=== PATIENT | male | born 1990 | race Caucasian/White ===

== ENCOUNTER 2024-01-28 19:39 | Emergency (ER) | payer BC, SELFPAY ==
--- NOTE | ~2024-01-28 | CT_ITS ---
EXAMINATION: CT abdomen pelvis w con DATE: 01/28/2024 22:45 INDICATION: abd pain, nausea, diarrhea TECHNIQUE: Computed tomography (CT) of the abdomen and pelvis was performed with 100 mL Omnipaque-350 intravenous contrast. Automated exposure control and iterative reconstruction technique were employe d. The dose-length product was 584.13 mGy-cm. COMPARISON: None. FINDINGS: Lower thorax: Mild dependent atelectasis. Liver: Normal. Biliary/Gallbladder: Gallbladder is contracted. No bile duct dilation. Pancreas: No mass or duct dilation. Spleen: Normal. Adrenals:No mass. Kidneys: No suspicious mass, obstructing stone, or hydronephrosis. GI tract: Mild distal esophageal and antral wall edema. No small or large bowel dilation. Normal appe ndix. Mesentery/Peritoneum: No ascites, mass, or free air. Retroperitoneum: No mass. Pelvis: Pelvic organs are within normal limits. Soft Tissues: Soft tissues and body wall unremarkable. Bones: No acute osseous finding. IMPRESSION: Mild esophagitis and antral gastritis. Otherwise, no acute abdominopelvic process detected. Reviewed, dictated and finalized at location K.
[2024-01-28 19:41] VITALS: BP 141/78; PULSE 96; RESP 20; TEMP 36.6; O2SAT 100
[2024-01-28 21:58] LABS: Basophils Absolute Auto 0.1 K/mm3 (0.0-0.1); Basophils Percent Auto 0.7 % (0.2-1.2); Eosinophils Absolute Auto 0.7 K/mm3 (0-0.3); Hematocrit 45.2 % (42.0-52.0); Hemoglobin 16.1 g/dL (14.0-18.0); Immature Granulocyte Absolute 0.02 K/mm3 (0.00-0.031); Immature Granulocyte Percent A 0.2 % (0-0.5); Lymphocytes Absolute Auto 2.35 K/mm3 (0.9-3.2); Lymphocytes Percent Auto 28.1 % (18.3-44.2); Mean Corpuscular HGB Conc 35.6 g/dl (32-36); Mean Corpuscular Hemoglobin 33.1 pg (26-34); Mean Corpuscular Volume 92.8 fl (80-100); Mean Platelet Volume 8.9 fl (7.4-10.4); Monocytes Absolute Auto 0.8 K/mm3 (0.1-0.6); Monocytes Percent Auto 9.6 % (2.6-8.5); Neutrophils Absolute Auto 4.5 K/mm3 (1.3-6.7); Neutrophils Percent Auto 53.4 % (45.5-73.1); Platelet Count Result 204 k/mm3 (150-375); Red Blood Count 4.87 M/mm3 (4.6-6.20); White Blood Count 8.4 K/mm3 (4.5-10.0)
[2024-01-28 22:06] LABS: Appearance Urine Clear (Clear); Bilirubin Urine Negative (Negative); Blood Urine Negative (Negative); Color Urine Yellow (Yellow); Glucose Urine UA Negative (Negative); Ketones Urine Negative (Negative); Leukocyte Esterase Ur Negative LEU/UL (Negative); Nitrate Urine Negative (Negative); Protein Urine Negative (Negative); Specific Grav Ur 1.007 (1.001-1.035); Urobilinogen Urine 0.2 mg/dL (<2.0); pH Urine 6.5 (5.0-9.0)
[2024-01-28 22:08] LABS: Alanine Aminotransferase 41 U/L (6-50); Albumin Level 4.6 g/dL (3.5-5.1); Alkaline Phosphatase 108 U/L (38-126); Anion Gap 8 mmol/L (4-12); Aspartate Amino Transferase 33 U/L (17-59); Bilirubin,Total 0.5 mg/dL (0.2-1.3); Blood Urea Nitrogen 13 mg/dL (9-20); Calcium 9.4 mg/dL (8.4-10.2); Carbon Dioxide 26 mmol/L (22-30); Chloride 105 mmol/L (98-107); Estimated CRCL calculation 116 ml/min; Estimated Glomerular Filt Rate > 60; Glucose 95 mg/dL (65-110); Lipase 64 U/L (23-300); Sodium 139 mmol/L (137-145)
[2024-01-28 22:16] LABS: Add Urine Microscopic? NO
[2024-01-28 22:24] VITALS: BP 132/84; PULSE 86; RESP 18; O2SAT 98
--- NOTE | 2024-01-28 22:25 | ED.ABDPAIN ---
HPI - Abdominal Pain General Chief Complaint: Abdominal Pain Stated Complaint: abd pain Time Seen by Provider: 01/28/24 21:39 Source: patient Mode of arrival: ambulatory Limitations: no limitations History of Present Illness HPI narrative: this is a 33-year-old male that presents to the emergency department for epigastric abdominal discomfort. Reports associated nausea. Reports he has been experiencing some diarrhea the last several days. His pain worsened today after eating [place] food for lunch. Denies fevers or vomiting. Related Data Allergies Allergy/AdvReac Type Severity Reaction Status Date / Time lactose Allergy Nausea Verified 01/28/24 19:48 Review of Systems Review of Systems: CONSTITUTIONAL: Denies fever GASTROINTESTINAL: Reports abdominal pain, nausea, and diarrhea. Denies vomiting GENITOURINARY: Denies dysuria or hematuria. All systems reviewed & are unremarkable except as noted in HPI and below PMFSH Past Medical History Medical History (Updated 01/28/24 @ 23:03 by Dora Gifford PA-C) History of ADHD Social History Social History (Updated 01/28/24 @ 22:29 by Dora Gifford PA-C) Substance use: current Substance use type: marijuana Exam Narrative: GENERAL: Well-appearing, well-nourished, and in no acute distress. HEAD: Normocephalic, atraumatic. EYES: EOMI. CHEST: Clear to auscultation. No respiratory distress. No wheezes rales or rhonchi HEART: Regular rate and rhythm. No murmur heard. Normal peripheral pulses. ABDOMEN: Soft, nondistended, normal active bowel sounds. Tender to palpation throughout the mid/upper abdomen EXTREMITIES: Normal range of motion. No edema. SKIN: Warm, dry, no rash. NEURO: No focal deficits. Alert and oriented x3. PSYCH: Normal mood and affect Course Course Emergency Course: patient updated on his workup. Reports relief with Protonix Vital Signs Vital signs: Vital Signs Temperature 97.9 F 01/28/24 19:41 Pulse Rate 96 01/28/24 19:41 Respiratory Rate 20 01/28/24 19:41 Blood Pressure 141/78 H 01/28/24 19:41 Pulse Oximetry 100 01/28/24 19:41 Oxygen Delivery Room Air 01/28/24 19:41 Temperature 97.9 F 01/28/24 19:41 Pulse Rate 86 01/28/24 22:24 Respiratory Rate 18 01/28/24 22:24 Blood Pressure 132/84 01/28/24 22:24 Pulse Oximetry 98 01/28/24 22:24 Oxygen Delivery Room Air 01/28/24 19:41 MDM - Abdominal Pain MDM Narrative Medical decision making narrative: patient presents to the emergency department for epigastric abdominal discomfort. He is afebrile and nontoxic appearing. His vitals are stable. Cbc without leukocytosis. Metabolic panel and lipase without concerning findings. Urine without evidence of infection. CT abdomen and pelvis shows esophagitis/ gastritis. Otherwise no acute findings. Patient updated on his workup. Reports relief with Protonix. Will be continued on omeprazole. He is to follow up with primary provider. He was given warnings to return to the ER Differential Diagnosis Differential diagnosis: Likely gastroenteritis, pancreatitis and other ( gastritis, esophagitis, GERD, biliary colic) Lab Data Attestation: I reviewed the patient's lab results. 01/28/24 21:52 01/28/24 21:52 Labs: Lab Results 01/28/24 01/28/24 Range/Units 21:52 22:00 WBC 8.4 (4.5-10.0) K/mm3 RBC 4.87 (4.6-6.20) M/mm3 Hgb 16.1 (14.0-18.0) g/dL Hct 45.2 (42.0-52.0) % MCV 92.8 (80-100) fl MCH 33.1 (26-34) pg MCHC 35.6 (32-36) g/dl RDW 12.0 (11.5-14.5) % Plt Count 204 (150-375) k/mm3 MPV 8.9 (7.4-10.4) fl Immature Gran % (Auto) 0.2 (0-0.5) % Neut % (Auto) 53.4 (45.5-73.1) % Lymph % (Auto) 28.1 (18.3-44.2) % Perry % (Auto) 9.6 H (2.6-8.5) % Eos % (Auto) 8.0 H (0-4.4) % Baso % (Auto) 0.7 (0.2-1.2) % Lymph # (Auto) 2.35 (0.9-3.2) K/mm3 Perry # (Auto) 0.8 H (0.1-0.6) K/mm3 Eos # (Auto) 0.7
[2024-01-28] MEDS: ONDANSETRON INJ 4 MG/2 ML VIAL IV PUSH (22:33)
[2024-01-28] MEDS: PANTOPRAZOLE SODIUM IV 40 MG VIAL IV PUSH (22:34)
[2024-01-28] MEDS: SODIUM CHLORIDE 0.9% IV 1,000 ML 999 ML IV CONT (22:34)
--- NOTE | 2024-01-28 23:29 | PC.NURSE ---
2329: Pt and family mentioned pt had a testicular torsion on Saturday night that they forgot to mention in inital assessment. Pt concerned that may have something to do with it.
== END 2024-01-29 00:11 | disposition home or self-care (01) ==
PROVIDERS: Emergency Medicine; Emergency Provider Physician Assistant; PCP Pediatrics
DX: K20.90 Esophagitis, unspecified without bleeding (principal); K29.70 Gastritis, unspecified, without bleeding
CPT/HCPCS: 36415; 74177; 80053; 81003; 83690; 85025; 96361; 96374; 96375; 99284; C9113; J2405; J7030; Q9967

== ENCOUNTER 2024-03-17 14:21 | Emergency (ER) | payer BC, SELFPAY ==
[2024-03-17 14:29] VITALS: BP 138/82; PULSE 95; RESP 20; TEMP 36.5; O2SAT 98
--- NOTE | 2024-03-17 18:20 | PC.NURSE ---
Patient not found in lobby when called for.
== END 2024-03-17 18:30 | disposition left against medical advice (07) ==
LOC: ANHED 18:26
PROVIDERS: PCP Pediatrics
DX: R10.9 Unspecified abdominal pain (principal)
CPT/HCPCS: 99199